=== PATIENT | female | born 1995 | race Two or more races ===

== ENCOUNTER 2017-12-31 09:49 | Emergency (ER) | payer SELFPAY ==
[~2017-12-31] VITALS: Ht 162.6 cm; Wt 63.5 kg
[2017-12-31 09:46] VITALS: BP 109/70
[2017-12-31] MEDS ORDERED: Cyclobenzaprine 10mg Tab ORAL ONE (10:15)
[2017-12-31] MEDS ORDERED: Acetaminophen 500mg (ES) tab ORAL ONE (10:15)
[2017-12-31] MEDS ORDERED: TYLENOL EXTRA500 MG ORAL (10:43)
[2017-12-31] MEDS ORDERED: CYCLOBENZAPRINE10 MG ORAL (10:43)
[2017-12-31 11:08] VITALS: BP 118/74
--- NOTE | 2017-12-31 11:10 | Diagnostic Imaging Report ---
Indications: Reason For Exam: PAIN Technique: Two views of the left forearm Comparison: none Findings: No acute fractures or dislocations. No radiopaque foreign body. Normal mineralization. Impression: Negative
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
== END 2017-12-31 11:11 | disposition home or self-care (01) ==
LOC: EDBD 09:49 → EMR 09:55
DX: S50.12XA Contusion of left forearm, initial encounter (principal); S80.02XA Contusion of left knee, initial encounter; V43.52XA Car driver injured in collision with other type car in traffic accident, initial encounter; Y92.410 Unspecified street and highway as the place of occurrence of the external cause; M54.2 Cervicalgia
CPT/HCPCS: 99284